=== PATIENT | female | born 1965 | race Two or more races ===

== ENCOUNTER 2016-09-08 13:20 | Emergency (ER) | payer OTHER ==
[2016-09-08 13:28] VITALS: BP 143/96; PULSE 79; TEMP 98.2; BMI 30.1
--- NOTE | 2016-09-08 14:09 | PDOC ---
History of Present Illness - General Chief Complaint: Ear Problem Stated Complaint: RT EAR PAIN Time Seen by Provider: 09/08/16 13:43 History Source: Patient Exam Limitations: No Limitations - History of Present Illness Initial Comments: 09/08/16 14:09 Chief Complaint: "My ear hurts and my throat is sore" Pt. is a 51 y/o female who presents to the ED complaining of R ear pain and sore throat for three days. Pt. states that her ear began to bother her first and then her throat hurt. Pt. states that the area behind her ear hurts. Her symptoms have gotten worse over the past three days. Took Motrin with some relief. Denies hearing changes, ringing in the ears, dizziness, difficulty swallowing, and drooling. Denies fevers, chills, malaise, N/V/D. Pt. has not seen a dentist in years. Past History - Past Medical History Allergies/Adverse Reactions: Allergies Allergy/AdvReac Type Severity Reaction Status Date / Time No Known Allergies Allergy Verified 09/08/16 13:28 Home Medications: Ambulatory Orders Fluticasone Prop 0.05% Nasal [Flonase -] 1 - 2 spray NS BID #1 spray.pump Ibuprofen 600 mg PO Q4HWA #28 tablet 09/08/16 GI Disorders: Yes (GASTRITIS) - Surgical History Cholecystectomy: Yes - Psycho/Social/Smoking Cessation Hx Anxiety: No Suicidal Ideation: No Smoking History: Never smoked Number of Cigarettes Smoked Daily: 1 Information on smoking cessation initiated: No Hx Alcohol Use: No Review of Systems - Review of Systems Able to Perform ROS?: Yes Is the patient limited Japanese proficient: No Constitutional: No: Chills, Fever, Weakness HEENTM: Yes: Ear Pain, Throat Pain. No: Blurred Vision, Recent change in vision , Ear Discharge, Nose Pain, Nose Congestion, Tinnitus, Hearing Loss, Dental Problems, Difficulty Swallowing Respiratory: No: Cough, Shortness of Breath Neurological: No: Headache, Dizziness *Physical Exam - Vital Signs Last Vital Signs Temp Pulse Resp BP Pulse Ox 98.2 F 79 18 143/96 99 09/08/16 13:25 09/08/16 13:25 09/08/16 13:25 09/08/16 13:25 09/08/16 13:25 - Physical Exam Comments: 09/08/16 14:38 MOUTH/DENTAL: Molars missing of both upper and lower teeth. Enamal erosion on top teeth. No obvious abscess, or inflammation. General Appearance: Yes: Nourished, Appropriately Dressed. No: Apparent Distress HEENT: positive: EOMI, SHAMAR, Normal Voice, Symmetrical, Tonsillar Erythema, TM Dull, Other (L TM with sclerosis). negative: Muffled/Hoarse voice, Tonsillar Exudate, Nasal Congestion, Rhinorrhea, Sinus Tenderness, TM Erythema, Excessive drooling Neck: positive: Trachea midline, Supple, Lymphadenopathy (R). negative: Tender , Rigid Respiratory/Chest: positive: Lungs Clear, Respiratory Distress, Accessory Muscle Use. negative: Normal Breath Sounds Integumentary: positive: Normal Color, Dry, Warm Medical Decision Making - Medical Decision Making 09/08/16 14:39 Pt. is a 51 y/o female who presents to the ED with a chief complaint of sore throat and ear pain for 3 days. L ear with sclerosis of the TM, but no obvious infection. Middle ear serous effusion present behind the R TM. Will test the pt. for strep at this time. Will also give toradol for pain. Re-evaluate 09/08/16 15:43 Strep testing is negative at this time. Most likely a viral syndrome. Will prescribe fluticasone nasal spray to help with ear symptoms. Also recommend that pt. visit a dentist to have a cleaning and evaluation. Will discharge home at this time with education for symptomatic management. Pt. understands all discharge instructions and all questions were answered at this time. *DC/Admit/Observation/Transfer Diagnosis at time of Disposition: Ear pain, right Pharyngitis Qualifiers: Pharyngitis/tonsillitis etiology: unspecified etiology Qualified Code(s): J02.9 - Acute pharyngitis, unspecified - Discharge Dispostion Admit: No - Prescriptions Prescriptions: Fluticasone Prop 0.05% Nasal [Flonase -] 1 - 2 spray NS BID #1 spray.pump Ibuprofen 600 mg PO Q4HWA #28 tablet - Referrals Referrals: STAFF,NOT ON [Primary Care Provider] - - Patient Instructions Printed Discharge Instructions: DI for Pharyngitis/Tonsillopharyngitis -- Adult Additional Instructions: Tiene dolor de odo y dolor de garganta debido a un virus. Ortega prueba de estreptococo fue negativa hoy. Se le recet un spray nasal para ayudar con el dolor de odo. Use el spray dos veces al da hasta que se sienta mejor. [place] Motrin boyd prescrito hasta que se sienta mejor. Usted puede usar sun'aq con gargarismos de yudi para ayudar con ortega dolor. deborah Solis caliente o paletas tambin pueden ayudar con monique sntomas. Vuelva a la [place] si no puede tragar, desarrollar fiebre o escalofros, o si tiene algn cambio en monique sntomas. Print Language: FRENCH
[2016-09-08] MEDS ORDERED: KETOROLAC TROMETHAMINE 60 MG/2 ML VIAL IM ONE (14:23)
== END 2016-09-08 15:58 | disposition home or self-care (01) ==
LOC: JERFT 13:20
PROC: 3E0233Z Introduction of Anti-inflammatory into Muscle, Percutaneous Approach (ICD-10-PCS; principal; 2016-09-08)
DX: H92.01 Otalgia, right ear (principal); J02.9 Acute pharyngitis, unspecified
CPT/HCPCS: 87070; 87430; 99281-25

== ENCOUNTER 2016-10-17 16:17 | Emergency (ER) | payer OTHER ==
[2016-10-17 16:27] VITALS: BP 134/92; PULSE 88; TEMP 98.1; BMI 29.4
--- NOTE | 2016-10-17 17:58 | PDOC ---
History of Present Illness - General Chief Complaint: Sore Throat Stated Complaint: PAIN Past History - Past Medical History Allergies/Adverse Reactions: Allergies Allergy/AdvReac Type Severity Reaction Status Date / Time No Known Allergies Allergy Verified 10/17/16 16:24 Home Medications: Ambulatory Orders Fluticasone Prop 0.05% Nasal [Flonase -] 1 - 2 spray NS BID #1 spray.pump Ibuprofen 600 mg PO Q4HWA #28 tablet 09/08/16 GI Disorders: Yes (GASTRITIS) Hypercholesterolemia: Yes - Surgical History Cholecystectomy: Yes - Psycho/Social/Smoking Cessation Hx Anxiety: No Suicidal Ideation: No Smoking History: Never smoked Have you smoked in the past 12 months: No Number of Cigarettes Smoked Daily: 1 Information on smoking cessation initiated: No Hx Alcohol Use: No Drug/Substance Use Hx: No Substance Use Type: None *Physical Exam - Vital Signs Last Vital Signs Temp Pulse Resp BP Pulse Ox 98.1 F 88 18 134/92 100 10/17/16 16:25 10/17/16 16:25 10/17/16 16:25 10/17/16 16:25 10/17/16 16:25
--- NOTE | 2016-10-17 18:00 | PDOC ---
History of Present Illness - General History Source: Patient Exam Limitations: No Limitations <EricReema - Last Filed: 10/17/16 18:19> - General History Source: Patient Exam Limitations: No Limitations - History of Present Illness Initial Comments: 10/17/16 18:44 The patient is a 51 year old female, with a significant past medical history of Gastritis, Hypercholesterolemia, who presents to the emergency department with throat pain, headache and ear pressure for the past 3 days.. Patient describes wrap around headache with associated mild rhinorrhea and throat pain. The patient was previously seen in the ED for the same complaints for which she was given nasacort and motrin with minimal resolvement. Patient returns to the ED with worsening headache. Patient denies fever, chills. Patient denies exercise change. Patient nausea, vomiting, light or sound sensitivity. Allergies: NKA Past surgical history: Cholecystectomy Social history: None <Tammie Land - Last Filed: 10/17/16 18:46> - General Chief Complaint: Sore Throat Stated Complaint: PAIN Time Seen by Provider: 10/17/16 17:58 Past History - Past Medical History GI Disorders: Yes (GASTRITIS) Hypercholesterolemia: Yes - Surgical History Cholecystectomy: Yes - Psycho/Social/Smoking Cessation Hx Anxiety: No Suicidal Ideation: No Smoking History: Never smoked Have you smoked in the past 12 months: No Number of Cigarettes Smoked Daily: 1 Information on smoking cessation initiated: No Hx Alcohol Use: No Drug/Substance Use Hx: No Substance Use Type: None <Reema Reyes - Last Filed: 10/17/16 18:19> <Tammie Land - Last Filed: 10/17/16 18:46> - Past Medical History Allergies/Adverse Reactions: Allergies Allergy/AdvReac Type Severity Reaction Status Date / Time No Known Allergies Allergy Verified 10/17/16 16:24 Home Medications: Ambulatory Orders Fluticasone Prop 0.05% Nasal [Flonase -] 1 - 2 spray NS BID #1 spray.pump Ibuprofen 600 mg PO Q4HWA #28 tablet 09/08/16 Review of Systems - Review of Systems Able to Perform ROS?: Yes Comments:: 10/17/16 18:44 CONSTITUTIONAL: Absent: fever, no chills, no fatigue EYES: Absent: visual changes ENT: + ear pain. +throat pain. +headache. CARDIOVASCULAR: Absent: chest pain, no palpitations RESPIRATORY: Absent: cough, no SOB SKIN: Absent: rash NEURO: Absent: headache <Tammie Land - Last Filed: 10/17/16 18:46> *Physical Exam - Vital Signs Last Vital Signs Temp Pulse Resp BP Pulse Ox 98.1 F 88 18 134/92 100 10/17/16 16:25 10/17/16 16:25 10/17/16 16:25 10/17/16 16:25 10/17/16 16:25 <Reema Reyes - Last Filed: 10/17/16 18:19> - Vital Signs Last Vital Signs Temp Pulse Resp BP Pulse Ox 98.1 F 88 18 134/92 100 10/17/16 16:25 10/17/16 16:25 10/17/16 16:25 10/17/16 16:25 10/17/16 16:25 - Physical Exam Comments: 10/17/16 18:44 GENERAL: +Appears uncomfortable.No apparent distress. HEENT: +Head has reproducible tenderness to occiput and scalp insertion sites. Sternocleidomastoid insertion and tenderness that reproduces headache with pressure point. +Neck is supple. +Clear rhinitis. Normocephalic, atraumatic. PERRL, EOM intact. PULMONARY: Clear to auscultation bilaterally. EXTREMITIES: Normal ROM in all four extremities. No gross deformities. SKIN: Warm, dry. No rash NEUROLOGICAL: No focal neurological deficits. <Tammie Land - Last Filed: 10/17/16 18:46> Medical Decision Making - Medical Decision Making 10/17/16 18:44 Patient given cyclobenzaprine and toradol 60 mg IM Reema Reyes CURATOR OF COLLECTIONS: The scribe's documentation has been prepared under my direction and personally reviewed by me in its entirety. I confirm that the note above accurately reflects all work, treatment, procedures, and medical decision making performed by me. <Nay Landhel - Last Filed: 10/17/16 18:46> *DC/Admit/Observation/Transfer - Discharge Dispostion Admit: No <Reema Reyes - Last Filed: 10/17/16 18:19> - Attestations Scribe Attestion: 10/17/16 18:44 Documentation prepared by Tammie aLnd, acting as medical records administrator for Reema Reyes NP <Tammie Land - Last Filed: 10/17/16 18:46> Diagnosis at time of Disposition: Cervical strain, acute Qualifiers: Encounter type: initial encounter Qualified Code(s): S16.1XXA - Strain of muscle, fascia and tendon at neck level, initial encounter - Discharge Dispostion Disposition: HOME Condition at time of disposition: Stable - Patient Instructions Printed Discharge Instructions: DI for Cervical Muscle Strain Additional Instructions: Rest, no heavy lifting or exercise until pain is resolved Hot soaks to neck and low back as often as possible/hot showers or Jacuzzis No massage or therapy until spasm is gone Continue ibuprofen 2-200 mg tablets every 6 hours for the next 3 days then as needed for pain and swelling Cyclobenzaprine 1-10mg for spasm- will make dizzy and sleepy If not significant improvement within 24 hours with medication and rest regime, followup with private physician for change in medications and /or therapy. Descansar, no levantar objetos pesados ??o hacer ejercicio hasta que el dolor se resuelva Empapados en caliente al ya y espalda baja osullivan frecuentemente boyd sea posible / duchas calientes o jacuzzis Sin masaje ni terapia hasta que el espasmo desaparezca Contine con ibuprofen 2-200 mg comprimidos cada 6 horas sunita los siguientes 3 coker, segn sea necesario para el dolor y la inflamacin Cyclobenzaprine 1-10mg para el espasmo - bob mareado y sooliento Si no mejora significativa dentro de 24 horas con la medicacin y el rgimen de descanso, seguimiento con el mdico privado para el cambio en medicamentos y / o terapia.
[2016-10-17] MEDS ORDERED: KETOROLAC TROMETHAMINE 60 MG/2 ML VIAL IM ONE (18:17)
[2016-10-17] MEDS ORDERED: KETOROLAC TROMETHAMINE 60 MG/2 ML VIAL ONE (18:17)
[2016-10-17] MEDS ORDERED: CYCLOBENZAPRINE HCL 10 MG TABLET (FP) ONE (18:26)
== END 2016-10-17 18:47 | disposition home or self-care (01) ==
LOC: JERFT 16:17
PROC: 3E0233Z Introduction of Anti-inflammatory into Muscle, Percutaneous Approach (ICD-10-PCS; principal; 2016-10-17)
DX: S16.1XXA Strain of muscle, fascia and tendon at neck level, initial encounter (principal); X58.XXXA Exposure to other specified factors, initial encounter; Y93.89 Activity, other specified; Y92.89 Other specified places as the place of occurrence of the external cause
CPT/HCPCS: 96372; 99281-25

== ENCOUNTER 2016-11-14 10:49 | Emergency (ER) | payer OTHER ==
[2016-11-14 11:06] VITALS: BMI 29.4
--- NOTE | 2016-11-14 12:14 | EKG ---
Test Reason : Blood Pressure : / mmHG Vent. Rate : 088 BPM Atrial Rate : 088 BPM P-R Int : 156 ms QRS Dur : 074 ms QT Int : 364 ms P-R-T Axes : 037 001 026 degrees QTc Int : 440 ms NORMAL SINUS RHYTHM NORMAL ECG WHEN COMPARED WITH ECG OF 02-SEP-2013 13:10, NO SIGNIFICANT CHANGE WAS FOUND Confirmed by BONNIE QUILES MD ([id number]) on 11/14/2016 12:13:52 PM Referred By: Confirmed By:BONNIE QUILES MD
[2016-11-14 12:17] LABS: BASOPHIL 0.8 % (0-2.0); EOSINOPHIL 2.2 % (0-4.5); MCH 31.1 pg (25.7-33.7); MEAN CELL VOLUME 91.5 fl (80-96); MEAN PLT VOLUME 8.4 fl (7.5-11.1); NEUTROPHILS 61.3 % (42.8-82.8); PLATELET COUNT 254 K/MM3 (134-434); RDW 12.7 % (11.6-15.6); WHITE BLOOD COUNT 9.1 K/mm3 (4.0-10.0)
[2016-11-14 12:40] LABS: URINE APPEARANCE CLEAR; URINE BILIRUBIN NEGATIVE (NEGATIVE); URINE BLOOD 1+ (NEGATIVE); URINE COLOR LTYELLOW; URINE GLUCOSE (UA) NEGATIVE (NEGATIVE); URINE KETONE NEGATIVE (NEGATIVE); URINE LEUK ESTERASE NEGATIVE (NEGATIVE); URINE NITRITE NEGATIVE (NEGATIVE); URINE PROTEIN NEGATIVE (NEGATIVE); URINE UROBILINOGEN NEGATIVE mg/dL (0.2-1.0)
[2016-11-14] MEDS ORDERED: ALBUTEROL SO4 2.5/IPRATROPIUM 0.5 INH SOL 3 ML VIAL.NEB. NEB ONE ×2 (12:41→12:46)
[2016-11-14 12:42] LABS: ALBUMIN 3.8 g/dl (3.4-5.0); ANION GAP 5 (8-16); BILIRUBIN,TOTAL 0.5 mg/dL (0.2-1.0); CALCIUM 9.4 mg/dL (8.5-10.1); CO2 29 mmol/L (21-32); CREATININE 0.8 mg/dL (0.55-1.02); GLUCOSE,RANDOM 113 mg/dL (74-106); SGOT/AST 18 U/L (15-37); SGPT/ALT 31 U/L (12-78); TOT PROT 7.7 g/dl (6.4-8.2)
--- NOTE | 2016-11-14 12:43 | PDOC ---
History of Present Illness <ShanekaAubrey - Last Filed: 11/14/16 13:34> - General History Source: Patient Exam Limitations: No Limitations <Emery,Tammie - Last Filed: 11/14/16 15:08> - General Chief Complaint: Chest Pain Stated Complaint: CHEST PAIN Time Seen by Provider: 11/14/16 11:30 - History of Present Illness Initial Comments: 11/14/16 13:32 The patient is a 51 year old female, with a significant past medical history of Gastritis, HLD, Asthma, who presents to the emergency department with cold-like symptoms and pleuritic chest pain for the past 4 days. The patient reports subjective fever, throat pain and SOB secondary to productive cough (yellow) that has progressively worsened. The patient took Motrin and albuterol pump however reports minimal relief. Patient also states her sister is sick with the same symptoms. Patient reports recent travel from 2 months ago but was fine until 4 days ago. She denies headache or dizziness. She denies, diaphoresis, exertional sob/cp, abdominal pain, nausea, vomit, diarrhea or constipation. She denies dysuria, frequency, urgency or hematuria. Allergies: NKA Past surgical history: Cholecystectomy, Hysterectomy Social history: Never smoked (EmeryTammie) Past History - Past Medical History GI Disorders: Yes (GASTRITIS) Hypercholesterolemia: Yes - Surgical History Cholecystectomy: Yes - Immunization History Immunization Up to Date: Yes - Psycho/Social/Smoking Cessation Hx Anxiety: No Suicidal Ideation: No Smoking History: Never smoked Have you smoked in the past 12 months: No Number of Cigarettes Smoked Daily: 2 Information on smoking cessation initiated: No Hx Alcohol Use: No Drug/Substance Use Hx: No Substance Use Type: None <Aubrey Munroe - Last Filed: 11/14/16 13:34> <Tammie Land - Last Filed: 11/14/16 15:08> - Past Medical History Allergies/Adverse Reactions: Allergies Allergy/AdvReac Type Severity Reaction Status Date / Time No Known Allergies Allergy Verified 11/14/16 11:02 Home Medications: Ambulatory Orders Ibuprofen 600 mg PO Q4HWA #28 tablet 09/08/16 Albuterol Sulfate Inhaler - [Ventolin HFA Inhaler -] 1 - 2 inh PO Q4H PRN #1 inhaler 11/14/16 Albuterol Sulfate Inhaler - [Ventolin Hfa Inhaler -] 1 - 2 inh PO Q4H 11/14/16 Benzonatate [Tessalon Pearls -] 100 mg PO TID PRN #21 capsule 11/14/16 Review of Systems <ShanekaAubrey - Last Filed: 11/14/16 13:34> - Review of Systems Able to Perform ROS?: Yes <Tammie Land - Last Filed: 11/14/16 15:08> - Review of Systems Comments:: 11/14/16 13:32 CONSTITUTIONAL: +subjective fever No reported: Chills, Diaphoresis, Generalized Weakness, Malaise, Loss of Appetite HEENT: +throat pain. No reported: Rhinorrhea, Nasal Congestion, Throat Pain, Throat Swelling, Difficulty Swallowing, Mouth Swelling, Ear Pain, Eye Pain, Visual Changes CARDIOVASCULAR: +chest pain No reported: Syncope, Palpitations, Irregular Heart Rate, Lightheadedness, Peripheral Edema RESPIRATORY: + SOB, cough No reported: SOB with Exertion, Orthopnea, Wheezing, Stridor, Hemoptysis GASTROINTESTINAL: No reported: Abdominal pain, Abdominal Distension, Nausea, Vomiting, Diarrhea, Constipation, Melena, Hematochezia GENITOURINARY: No reported: Dysuria, Frequency, Urgency, Hesitancy, Flank Pain, Genital Pain MUSCULOSKELETAL: No reported: Myalgia, Arthralgia, Joint Swelling, Back pain, Neck Pain SKIN: No reported: Rash, Itching, Pallor HEMATOLOGIC/IMMUNOLOGIC: No reported: Easy Bleeding, Easy Bruising, Lymphadenopathy, Frequent infections ENDOCRINE: No reported: Unexplained Weight Gain, Unexplained Weight Loss, Heat Intolerance , Cold Intolerance NEUROLOGIC: No reported: Headache, Focal Weakness, Paresthesias, Vertigo, Lightheadedness, Unsteady Gait, Seizure, Mental Status Changes, Incontinence PSYCHIATRIC: No reported: Anxiety, Depression (Tammie Land) *Physical Exam <Aubrey Munroe - Last Filed: 11/14/16 13:34> <Tammie Land - Last Filed: 11/14/16 15:08> - Vital Signs Last Vital Signs Temp Pulse Resp BP Pulse Ox 98.7 F 70 18 142/70 97 11/14/16 14:18 11/14/16 14:18 11/14/16 14:18 11/14/16 14:18 11/14/16 14:18 - Physical Exam Comments: 11/14/16 13:32 GENERAL: The patient is awake, alert, and fully oriented, Nontoxic - in no acute distress. HEAD: Normocephalic, atraumatic. EYES: extraocular movements intact, sclera anicteric, conjunctiva clear. ENT: +Posterior pharyngeal erythema. Normal voice, Moist mucous membranes. NECK: Normal range of motion, No JVD LUNGS: Breath sounds equal, clear to auscultation bilaterally. No wheezes, no rhonchi, no rales. HEART: Regular rate and rhythm, normal S1 and S2 without murmur, rub or gallop. ABDOMEN: Soft, nontender, normoactive bowel sounds. No guarding, no rebound. No masses. No CVA tenderness EXTREMITIES: Normal range of motion, no edema. No clubbing or cyanosis. No cords , erythema, or calf tenderness.No edema NEUROLOGICAL: No facial asymmetry, Normal speech, normal gait. PSYCH: Normal mood, normal affect. SKIN: Warm, Dry, normal turgor. (Tammie Land) Heart Score/ECG Review <Aubrey Munroe - Last Filed: 11/14/16 13:34> <Tammie Land - Last Filed: 11/14/16 15:08> - ECG Impressions Comment:: 11/14/16 13:08 Twelve-lead EKG was performed and reviewed by me. There is normal sinus rhythm with a normal rate. Rate of 85 The axis is normal. The intervals are normal. There is normal R wave progression There are no ST or T wave abnormalities. Impression: Normal twelve-lead EKG (Aubrey Munroe) ED Treatment Course - LABORATORY CBC & Chemistry Diagram: 11/14/16 12:12 11/14/16 12:12 <Aubrey Munroe - Last Filed: 11/14/16 13:34> - LABORATORY CBC & Chemistry Diagram: 11/14/16 12:12 11/14/16 12:12 <Tammie Land - Last Filed: 11/14/16 15:08> - ADDITIONAL ORDERS Additional order review: Laboratory Results 11/14/16 11/14/16 12:23 12:12 Sodium 138 Potassium 4.2 Chloride 104 Carbon Dioxide 29 Anion Gap 5 L BUN 7 D Creatinine 0.8 Creat Clearance w eGFR > 60 Random Glucose 113 H Calcium 9.4 Total Bilirubin 0.5 AST 18 D ALT 31 D Alkaline Phosphatase 94 Creatine Kinase 113 Troponin I < 0.02 Total Protein 7.7 Albumin 3.8 Lipase 111 Urine Color Ltyellow Urine Appearance Clear Urine pH 6.0 Urine Protein Negative Urine Glucose (UA) Negative Urine Ketones Negative Urine Blood 1+ H Urine Nitrite Negative Urine Bilirubin Negative Urine Urobilinogen Negative Ur Leukocyte Esterase Negative Urine RBC 1 Urine WBC 1 Ur Epithelial Cells Few Urine Mucus Rare Urine HCG, Qual Negative 11/14/16 12:12 RBC 4.72 MCV 91.5 MCHC 34.0 RDW 12.7 MPV 8.4 Neutrophils % 61.3 Lymphocytes % 27.9 D Monocytes % 7.8 Eosinophils % 2.2 Basophils % 0.8 - Medications Given in the ED: ED Medications Discontinued Medications Generic Name Dose Route Start Last Admin Trade Name Freq PRN Reason Stop Dose Admin Albuterol/Ipratropium 1 amp 11/14/16 12:41 11/14/16 12:49 Duoneb - NEB 11/14/16 12:42 1 amp ONCE ONE Administration Medical Decision Making <Aubrey Munroe - Last Filed: 11/14/16 13:34> <Tammie Land - Last Filed: 11/14/16 15:08> - Medical Decision Making 11/14/16 12:42 51y F hx of asthma,presenting with 4 days of cough associated with congestion, sore throat, mild chest pain when she breaths,subjective fevers, sister with similar symptoms. on exam pt apepars well in no distress will obtain ekg, cxr to r/o pna will give duoneb likely bronchitis, will r/ pna A portion of this note was documented by scribe services under my direction. I have reviewed the details of the note, within reason, and agree with the documentation with the following case summary and management plan written by me 11/14/16 13:08 Patient's lab work was reviewed it is unremarkable Chest x-ray negative for acute pathology Will discharge patient with supportive management at home We'll give the patient antitussives. follow-up with PMD Return precautions were discussed I discussed the physical exam findings, ancillary test results and final diagnoses with the patient. I answered all of the patient's questions. The patient was satisfied with the care received and felt comfortable with the discharge plan and treatment plan. The patient will call their primary care physician within 24 hours to arrange follow-up and will return to the Emergency Department with any new, persistent or worsening symptoms. (Aubrey Munroe) *DC/Admit/Observation/Transfer - Discharge Dispostion Admit: No <Aubrey Munroe - Last Filed: 11/14/16 13:34> <Tammie Land - Last Filed: 11/14/16 15:08> Diagnosis at time of Disposition: Cough Upper respiratory infection Qualifiers: URI type: unspecified viral URI Qualified Code(s): J06.9 - Acute upper respiratory infection, unspecified - Discharge Dispostion Disposition: HOME Condition at time of disposition: Improved - Prescriptions Prescriptions: Benzonatate [Tessalon Pearls -] 100 mg PO TID PRN #21 capsule PRN Reason: Cough Albuterol Sulfate Inhaler - [Ventolin HFA Inhaler -] 1 - 2 inh PO Q4H PRN #1 inhaler PRN Reason: Shortness Of Breath - Referrals Referrals: [facility] [Provider Group] - Patient Instructions Printed Discharge Instructions: DI for Viral Upper Respiratory Infection -- Adult Additional Instructions: Vuelva al departamento de emergencia inmediatamente con CUALQUIER nuevo, persistente o empeorando sntomas. [place] los medicamentos necesarios para la tos. [place] ibuprofeno o Tylenol para cualquier dolor o malestar Debe llamar y hacer el seguimiento con ortega mdico en 4-5 coker para andrey evaluaci n ms detallada de monique sntomas. Los resultados fueron discutidos con usted. Por favor, asegrese de que ortega mdico revise los resultados de ortega evaluacin de emergencia. Return to the emergency department immediately with ANY new, persistent or worsening symptoms. Take the medications as needed for cough. Take ibuprofen or Tylenol for any pain or discomfort You MUST call and follow up with your doctor in 4-5 days for further evaluation of your symptoms. Results were discussed with you. Please make sure your doctor reviews the results of your emergency evaluation. Print Language: PERSIAN - Attestations Scribe Attestion: 11/14/16 13:32 Documentation prepared by Tammie Land, acting as medical aide for Aubrey Munroe MD (Emery,Tammie)
[2016-11-14 12:45] LABS: ALK PHOS 94 U/L (45-117); CPK 113 IU/L (26-192); TROPONIN I < 0.02 ng/ml (0.00-0.05)
[2016-11-14 12:50] LABS: URINE MUCUS RARE; URINE RBC 1 /hpf (0-3); URINE WBC 1 /hpf (3-5)
[2016-11-14 14:20] VITALS: BP 142/70; PULSE 70; TEMP 98.7
== END 2016-11-14 14:20 | disposition home or self-care (01) ==
LOC: JER 10:49
PROC: 3E0F7GC Introduction of Other Therapeutic Substance into Respiratory Tract, Via Natural or Artificial Opening (ICD-10-PCS; principal; 2016-11-14)
DX: J06.9 Acute upper respiratory infection, unspecified (principal)
CPT/HCPCS: 36415; 71010-TC; 80053; 81003; 81015; 83690; 84484; 84703; 85025; 93005; 93010; 94640; 99285-25

== ENCOUNTER 2017-08-11 10:14 | Emergency (ER) | payer OTHER ==
[2017-08-11 10:20] VITALS: BMI 31.5
--- NOTE | 2017-08-11 11:04 | PDOC ---
*Physical Exam - Vital Signs Last Vital Signs Temp Pulse Resp BP Pulse Ox 98.0 F 87 18 148/88 100 08/11/17 10:17 08/11/17 10:17 08/11/17 10:17 08/11/17 10:17 08/11/17 10:17 Medical Decision Making - Medical Decision Making 08/11/17 11:04 Pt seen by the Advanced Practice Provider under my direct supervision Ancillary studies reviewed I agree with plan as outlined by the Advanced Practice Provider AMRIBEL Pham *DC/Admit/Observation/Transfer Diagnosis at time of Disposition: Benign cyst of left breast - Discharge Dispostion Disposition: HOME Condition at time of disposition: Stable - Prescriptions Prescriptions: Ibuprofen 800 mg PO TID #30 tablet - Referrals Referrals: Sylvie Capone MD [Staff Physician] - - Patient Instructions Printed Discharge Instructions: DI for Breast Cyst Additional Instructions: You have a benign cyst as seen by your ultrasound. Please take Motrin 800mg every 8 hours as needed for your pain. Please follow up with [facility]. A referral has been provided for you Return to the ED if you have worsening pain, or have any new or worsening symptoms. Usted tiene un quiste shanna boyd se ve en ortega ultrasonido. Por favor, tome Motrin 800 mg cada 8 horas, segn sea necesario para ortega dolor. Por favor haz un seguimiento con OB / [employer]. Kia referencia bah sido provista para usted Regrese al servicio de urgencias si tiene un empeoramiento del dolor o tiene s ntomas nuevos o que empeoran. Print Language: MAORI - Post Discharge Activity
--- NOTE | 2017-08-11 11:06 | PDOC ---
History of Present Illness - General Chief Complaint: Pain Stated Complaint: BREAST PAIN Time Seen by Provider: 08/11/17 10:37 History Source: Patient - History of Present Illness Initial Comments: 08/11/17 12:34 Patient is a 52-year-old female with no past medical history who presents emergency department today complaining of left breast pain. She states that her pain started 3 days ago. She states that she feels a lump and she is concerned. Denies fevers, chills, shortness of breath, difficulty breathing, chest pain nausea, vomiting and diarrhea. Past History - Travel Traveled outside of the country in the last 30 days: No Close contact w/someone who was outside of country & ill: No - Past Medical History Allergies/Adverse Reactions: Allergies Allergy/AdvReac Type Severity Reaction Status Date / Time No Known Allergies Allergy Verified 11/14/16 11:02 Home Medications: Ambulatory Orders Ibuprofen 800 mg PO TID #30 tablet 08/11/17 COPD: No GI Disorders: Yes (GASTRITIS) Hypercholesterolemia: Yes - Surgical History Cholecystectomy: Yes - Immunization History Immunization Up to Date: Yes - Suicide/Smoking/Psychosocial Hx Smoking History: Never smoked Have you smoked in the past 12 months: No Number of Cigarettes Smoked Daily: 2 Information on smoking cessation initiated: No Hx Alcohol Use: No Drug/Substance Use Hx: No Substance Use Type: None Review of Systems - Review of Systems Able to Perform ROS?: Yes Comments:: 08/11/17 11:53 CONSTITUTIONAL: Absent: fever, chills, diaphoresis, generalized weakness, malaise, loss of appetite HEENT: Absent: rhinorrhea, nasal congestion, throat pain, throat swelling, difficulty swallowing, mouth swelling, ear pain, eye pain, visual Changes CARDIOVASCULAR: Absent: chest pain, loss of consciousness, palpitations, irregular heart rate, peripheral edema BREAST: Present: L breast tenderness. Absent: discharge from nipple RESPIRATORY: Absent: cough, shortness of breath, dyspnea with exertion, orthopnea, wheezing, stridor, hemoptysis GASTROINTESTINAL: Absent: abdominal pain, abdominal distension, nausea, vomiting, diarrhea, constipation, melena, hematochezia GENITOURINARY: Absent: dysuria, frequency, urgency, hesitancy, hematuria, flank pain, genital pain MUSCULOSKELETAL: Absent: myalgia, arthralgia, joint swelling SKIN: Absent: rash, itching, pallor HEMATOLOGIC/IMMUNOLOGIC: Absent: easy bleeding, easy bruising, lymphadenopathy, frequent infections ENDOCRINE: Absent: unexplained weight gain, unexplained weight loss, heat intolerance, cold intolerance NEUROLOGIC: Absent: headache, focal weakness or paresthesias, dizziness, unsteady gait, seizure, mental status changes, bladder or bowel incontinence PSYCHIATRIC: Absent: anxiety, depression, suicidal or homicidal ideation, hallucinations. Is the patient limited Kiswahili proficient: No *Physical Exam - Vital Signs Last Vital Signs Temp Pulse Resp BP Pulse Ox 98.0 F 87 18 148/88 100 08/11/17 10:17 08/11/17 10:17 08/11/17 10:17 08/11/17 10:17 08/11/17 10:17 - Physical Exam Comments: 08/11/17 11:54 GENERAL: Well developed, well nourished. Awake and alert. No acute distress. HEENT: Normocephalic, atraumatic. PERRLA, EOMI. No conjunctival pallor. Sclera are non- icteric. Moist mucous membranes. Oropharynx is clear. NECK: Supple. Full ROM. No JVD. Carotid pulses 2+ and symmetric, without bruits. No thyromegaly. No lymphadenopathy. BREAST: L breast with old surgical scars. Small round mobile nodule felt at the 10o' clock position closest to the nipple CARDIOVASCULAR: Regular rate and rhythm. No murmurs, rubs, or gallops. Distal pulses are 2+ and symmetric. PULMONARY: No evidence of respiratory distress. Lungs clear to auscultation bilaterally. No wheezing, rales or rhonchi. ABDOMINAL: Soft. Non-tender. Non-distended. No rebound or guarding. No organomegaly. Normoactive bowel sounds. MUSCULOSKELETAL Normal range of motion at all joints. No bony deformities or tenderness. No CVA tenderness. EXTREMITIES: No cyanosis. No clubbing. No edema. No calf tenderness. SKIN: Warm and dry. Normal capillary refill. No rashes. No jaundice. NEUROLOGICAL: Alert, awake, appropriate. Cranial nerves 2-12 intact. No deficits to light touch and temperature in face, upper extremities and lower extremities. No motor deficits in the in face, upper extremities and lower extremities. Normoreflexic in the upper and lower extremities. Normal speech. Toes are down- going bilaterally. Gait is normal without ataxia. PSYCHIATRIC: Cooperative. Good eye contact. Appropriate mood and affect. Medical Decision Making - Medical Decision Making 08/11/17 12:24 Patient is a 52-year-old female with no past medical history due to lack of seeing a doctor, who presents emergency department today complaining of left breast pain. On exam there is a round nodule at the 10 o'clock position near the nipple. Most likely cyst versus fibroma. We will obtain an ultrasound at this time to rule out abscess however less likely. No fevers in the ED. Vital signs are stable. Reevaluate 08/11/17 13:36 Ultrasound shows a complex benign cyst at the 10 o'clock position. No further treatment is needed at this time. We'll prescribe patient Motrin. We'll give follow-up for [facility]. Return precautions given. Patient understand all discharge instructions and all questions were answered. *DC/Admit/Observation/Transfer Diagnosis at time of Disposition: Benign cyst of left breast - Discharge Dispostion Disposition: HOME Condition at time of disposition: Stable Admit: No - Prescriptions Prescriptions: Ibuprofen 800 mg PO TID #30 tablet - Referrals Referrals: Sylvie Capone MD [Staff Physician] - - Patient Instructions Printed Discharge Instructions: DI for Breast Cyst Additional Instructions: You have a benign cyst as seen by your ultrasound. Please take Motrin 800mg every 8 hours as needed for your pain. Please follow up with [facility]. A referral has been provided for you Return to the ED if you have worsening pain, or have any new or worsening symptoms. Usted tiene un quiste shanna boyd se ve en ortega ultrasonido. Por favor, tome Motrin 800 mg cada 8 horas, segn sea necesario para ortega dolor. Por favor haz un seguimiento con OB / BUTCHER. Kia referencia bah sido provista para usted Regrese al servicio de urgencias si tiene un empeoramiento del dolor o tiene s ntomas nuevos o que empeoran. Print Language: AZERI - Post Discharge Activity
[2017-08-11] MEDS ORDERED: ACETAMINOPHEN 325 MG TABLET (FP) PO ONE (11:08)
[2017-08-11] MEDS ORDERED: ACETAMINOPHEN 325 MG TABLET (FP) ONE (11:12)
[2017-08-11 13:56] VITALS: BP 139/86; PULSE 82; TEMP 97.9
== END 2017-08-11 13:54 | disposition home or self-care (01) ==
LOC: JER 10:14
DX: N60.02 Solitary cyst of left breast (principal); Z72.0 Tobacco use
CPT/HCPCS: 76642-TC-LT; 99283-25

== ENCOUNTER → 2017-08-22 | Day surgery (SDC) | payer OTHER ==
--- NOTE | 2017-08-23 17:03 | PATH ---
Cytology Non-Gynecological Report Patient Name: APOLLO LITTLEJOHN [facility]. Rec. #: [id number] /Age/Gender: 1965 (Age: 52) / F Account: [id number] Location: RADIOLOGY Taken: 08/22/2017 Received: 08/22/2017 Reported: 08/23/2017 Physicians: Abelardo Hurtado M.D. Specimen(s) Received RIGHT THYROID FNA Clinical History Right thyroid nodule, 2.03 x 1.12 x 1.81 cm Final Diagnosis THYROID, RIGHT, FINE NEEDLE ASPIRATION: SATISFACTORY FOR EVALUATION. BETHESDA III: ATYPIA OF UNDETERMINED SIGNIFICANCE. ATYPICAL FOLLICULAR CELLS WITH MILD NUCLEAR ENLARGEMENT, CLEARING, NUCLEAR GROOVES, AND FOCAL CROWDING DISPERSED FRAGMENTS, AGGREGATES AND MICROFOLLICLES ASSOCIATED WITH THICK COLLOID AND RARE LYMPHOCYTES. Comment: The presence of lymphocytes raise the possibility of Chronic lymphocytic thyroiditis. Suggest clinical/radiologic and serologic correlation with repeat sampling including material for molecular studies (Thyroseq), as clinically warranted. Electronically Signed Yolanda Cyr M.D. Gross Description Received are eight direct smears, four of which are air-dried and Diff-Quik stained, and four of which are alcohol fixed and Pap stained. Also received is 20 ml of bloody formalin from which one cellblock is prepared.
== END | disposition home or self-care (01) ==
LOC: JRADIR 09:28
PROVIDERS: ATTEND Internal Medicine Endocrinology, Diabetes & Metabolism
PROC: 0G9H3ZX Drainage of Right Thyroid Gland Lobe, Percutaneous Approach, Diagnostic (ICD-10-PCS; principal; 2017-08-22)
DX: E04.1 Nontoxic single thyroid nodule (principal)
CPT/HCPCS: 76942; 88173; 88305-TC

== ENCOUNTER 2017-10-29 15:01 | Emergency (ER) | payer OTHER ==
[2017-10-29 15:19] VITALS: BMI 31.5
--- NOTE | 2017-10-29 15:57 | PDOC ---
History of Present Illness - General Chief Complaint: Blood Pressure Problem Stated Complaint: ELEVATED BP - History of Present Illness Initial Comments: 52 year old female, with a significant past medical history of Gastritis, Hypercholesterolemia, HTN, and ?hyperthyroidism? presenting with one episode of lightheadedness while walking the hallway 4 hours prior to presentation. States that she was walking down the hallway and suddenly felt very weak as if she was going to fall. She put her hands on the wall and slowly walked to her bed. She has never had this feeling prior to this. She did feel slightly nauseous at the time. She did not syncopize, fall, vomit, or suffer any trauma. Of note, she has been under a lot of stress from issues with her mother abroad in the [place] and has been restless that past three days while trying to sleep. Denies any SOB, chest pain, fevers, chills, diarrhea, constipation, headache, visual symptoms, or other issues. 10/29/17 16:12 Past History - Past Medical History Allergies/Adverse Reactions: Allergies Allergy/AdvReac Type Severity Reaction Status Date / Time No Known Allergies Allergy Verified 10/29/17 15:17 Home Medications: Ambulatory Orders Unobtainable 10/29/17 COPD: No GI Disorders: Yes (GASTRITIS) Hypercholesterolemia: Yes - Surgical History Cholecystectomy: Yes - Immunization History Immunization Up to Date: Yes - Suicide/Smoking/Psychosocial Hx Smoking History: Never smoked Have you smoked in the past 12 months: No Number of Cigarettes Smoked Daily: 2 Information on smoking cessation initiated: No Hx Alcohol Use: No Drug/Substance Use Hx: No Substance Use Type: None Review of Systems - Review of Systems Constitutional: No: Chills, Diaphoresis, Fever, Loss of Appetite HEENTM: No: Blurred Vision, Tearing, Recent change in vision Respiratory: No: Cough, Orthopnea, Shortness of Breath, SOB with Exertion Cardiac (ROS): No: Chest Pain, Edema, Irregular Heart Rate ABD/GI: No: Constipated, Diarrhea, Nausea, Vomiting : No: Burning, Dysuria, Discharge *Physical Exam - Vital Signs Last Vital Signs Temp Pulse Resp BP Pulse Ox 98.6 F 84 18 144/84 98 10/29/17 15:15 10/29/17 15:15 10/29/17 15:15 10/29/17 15:15 10/29/17 15:15 - Physical Exam General Appearance: Yes: Appropriately Dressed. No: Nourished, Apparent Distress HEENT: positive: EOMI, SHAMAR, Normal ENT Inspection, Normal Voice Neck: positive: Trachea midline, Normal Thyroid, Supple. negative: Tender, Rigid Respiratory/Chest: positive: Lungs Clear, Normal Breath Sounds. negative: Chest Tender, Respiratory Distress, Accessory Muscle Use Cardiovascular: positive: Regular Rhythm, Regular Rate Gastrointestinal/Abdominal: positive: Normal Bowel Sounds, Flat, Soft. negative : Tender Lymphatic: negative: Adenopathy, Tenderness Musculoskeletal: positive: Normal Inspection. negative: CVA Tenderness Extremity: positive: Normal Capillary Refill, Normal Inspection, Normal Range of Motion. negative: Tender Integumentary: positive: Normal Color, Dry, Warm Neurologic: positive: tax intern II-XII NML intact, Fully Oriented, Alert, Normal Mood/ Affect, Normal Response, Motor Strength 08/19 ED Treatment Course - LABORATORY CBC & Chemistry Diagram: 10/29/17 16:32 10/29/17 16:32 Medical Decision Making - Medical Decision Making 52 year old female with HTn presenting for lightheadedness after three days of poor sleep, poor appetite, and high stress due to family stresses. Overall, the story is most concerning for fatigue related presyncopal sensation. Labs WNL and UA non-infectious. EKG demonstrating no significant changes from previous EKG on 11/14/2016 (NSR, 79 BPM, MS 152, QRS 74, QTc 438 with slightly low/ flattened lead III T waves). Will DC with instructions to rest, eat frequently, and stay hydrated. Will DC with return precautions and follow up instructions. 10/29/17 17:02 *DC/Admit/Observation/Transfer Diagnosis at time of Disposition: Lightheadedness - Discharge Dispostion Disposition: HOME Condition at time of disposition: Improved Decision to Admit order: No - Referrals Referrals: Ceci Han MD [Primary Care Provider] - - Patient Instructions Printed Discharge Instructions: DI for Muscle Weakness Additional Instructions: Debes mantenerte hidratado y comer comidas regulares. Lo ms importante es que necesita dormir 8 horas cada noche! Por favor comienza a cuidarte! Por favor, dominique un seguimiento con ortega mdico de atencin primaria dentro de andrey semana. Regrese al servicio de urgencias si tiene sntomas nuevos o que empeoran. Print Language: UZBEK - Post Discharge Activity
[2017-10-29] MEDS ORDERED: SODIUM CHLORIDE 0.9% 500 ML INFUS.BAG IV ONE (16:10)
[2017-10-29 16:40] LABS: BASO % 1.2 % (0-2.0); EOS % 0.9 % (0-4.5); HEMATOCRIT 45.9 % (32.4-45.2); HEMOGLOBIN 15.4 GM/dL (10.7-15.3); LYMPH % 31.4 % (8-40); MCH 30.9 pg (25.7-33.7); MCHC 33.5 g/dl (32.0-36.0); MEAN PLT VOLUME 8.8 fl (7.5-11.1); MONO % 7.9 % (3.8-10.2); NEUT % 58.6 % (42.8-82.8); PLATELET COUNT 263 K/MM3 (134-434); RBC 4.98 M/mm3 (3.60-5.2); RDW 13.6 % (11.6-15.6); WHITE BLOOD COUNT 8.4 K/mm3 (4.0-10.0)
[2017-10-29 17:00] LABS: ALBUMIN 4.1 g/dl (3.4-5.0); ANION GAP 8 (8-16); BILIRUBIN,TOTAL 0.5 mg/dL (0.2-1.0); BLOOD UREA NITROGEN 11 mg/dL (7-18); CALCIUM 9.5 mg/dL (8.5-10.1); CHLORIDE 106 mmol/L (98-107); CO2 28 mmol/L (21-32); CREATININE 0.9 mg/dL (0.55-1.02); GLUCOSE,RANDOM 79 mg/dL (74-106); MAGNESIUM 2.3 mg/dL (1.8-2.4); POTASSIUM 4.2 mmol/L (3.5-5.1); SGOT/AST 17 U/L (15-37); SGPT/ALT 25 U/L (12-78); SODIUM 142 mmol/L (136-145); TOT PROT 7.8 g/dl (6.4-8.2)
[2017-10-29 17:09] LABS: ALK PHOS 75 U/L (45-117)
[2017-10-29 17:22] LABS: URINE APPEARANCE CLEAR; URINE BILIRUBIN NEGATIVE (<2.0 mg/dL); URINE COLOR LTYELLOW; URINE GLUCOSE (UA) NEGATIVE (NEGATIVE); URINE KETONE NEGATIVE (NEGATIVE); URINE LEUK ESTERASE NEGATIVE (NEGATIVE); URINE NITRITE NEGATIVE (NEGATIVE); URINE PROTEIN NEGATIVE (NEGATIVE); URINE UROBILINOGEN NEGATIVE mg/dL (0.2-1.0)
[2017-10-29 17:49] LABS: EPI CELLS RARE /HPF (FEW); URINE MUCUS RARE
[2017-10-29 18:04] VITALS: BP 139/96; PULSE 87; TEMP 97.9
--- NOTE | 2017-10-29 19:00 | PDOC ---
Attending Attestation - HPI HPI: 10/29/17 19:00 Ms. Vivian Vines is a 52 year old female with past medical history of Gastritis, HTN and hypercholesterolemia presents to the emergency department with lightheadedness and elevated BP. The patient presents s/p an episode of lightheadedness while walking down the hallway accompanied with weakness and nausea, denies LOC, vertigo, emesis or head injury. The patient states an increase in stress recently due to personal family issues. Denies chest pain or shortness of breath. Denies leg pain or swelling. Denies vomiting. Denies urinary/bowel changes. Allergies: NKDA Surgical history: Cholecystectomy Social history: Patient denies. PCP: Ceci Nuñez MD - Physicial Exam PE: 10/29/17 19:00 General: Well appearing, awake and alert, NAD. HEENT: NCAT, PERRL, EOMI, clear conjunctiva, anicteric, moist mucus membranes, clear oropharynx, no oral lesions.. Neck: neck supple, FROM, no JVD, LAD or masses Chest: no chest wall tenderness Lungs: CTAB, normal and even respirations, no respiratory distress Heart: RRR, no murmurs, 2+ peripheral pulses throughout, no peripheral edema Abdomen: soft, NTND, no peritoneal signs. Back: nontender, normal inspection and ROM MSK: no edema, LANDA x4, ROM intact. No clubbing or cyanosis. normal bulk and tone. Neuro: alert, oriented appropriately; no focal neurologic deficits. Gait stable. No ataxia. Skin: warm and well perfused, cap refill <2 sec, normal color - Medical Decision Making 10/29/17 19:00 Documentation prepared by Berkley Olmos, acting as medical billing service for Daria Duncan MD. <Berkley Olmos - Last Filed: 10/29/17 18:59> - Resident Resident Name: Juan C Khan - ED Attending Attestation I have performed the following: I have examined & evaluated the patient, The case was reviewed & discussed with the resident, I agree w/resident's findings & plan - Medical Decision Making 10/29/17 18:59 Mohinder 52F with HTN and HLD, ?thyroid issue, gastritis presenting with asymptomatic hypertension. Initially ? dizziness worse with walking and movement , no cp or sob, vertigo or neuro sx.. Also noted stressors and anxiety with family members. Symptoms since resolving. Vital signs reviewed, wnl. mild hypertension, but no end organ damage or suspicion for emergent pathology Plan: CBC, CMP, trop, EKG, TSH Prior notes reviewed, including admissions, discharges and consultations. laboratory results and imaging reviewed, basic labs and lytes and screening TSH wnl, notable for normal/neg trop. BP downtrending, no evidence of end organ damage. No neuro deficits, ambulatory w/o difficulty. Remains well appearing. EKG with isolated TWF in III, no ischemic changes, no ST segment elevations or depressions, normal intervals. Pt to be discharged in stable condition. Patient and family made aware of impression and plan, return precautions discussed (including but not limited to worsening pain or symptoms), fevers, or signs of infection, chest pain, respiratory distress, inability to tolerate oral intake, dehydration, syncope, or neurologic changes). Follow up with PMD and/or specialist as recommended, follow up information provided, take medications as instructed for duration of time. continue with supportive care, avoid triggers and precipitants and stressors. compliance with home medications encouraged. Information given in Danish. 10/29/17 19:14 <Daria Duncan - Last Filed: 10/29/17 19:16>
--- NOTE | 2017-10-30 13:29 | EKG ---
Test Reason : Blood Pressure : / mmHG Vent. Rate : 079 BPM Atrial Rate : 079 BPM P-R Int : 152 ms QRS Dur : 074 ms QT Int : 382 ms P-R-T Axes : 038 002 037 degrees QTc Int : 438 ms NORMAL SINUS RHYTHM NORMAL ECG WHEN COMPARED WITH ECG OF 14-NOV-2016 10:59, NO SIGNIFICANT CHANGE WAS FOUND Confirmed by BONNIE QUILES MD ([id number]) on 10/30/2017 1:29:05 PM Referred By: Confirmed By:BONNIE QUILES MD
== END 2017-10-29 18:07 | disposition home or self-care (01) ==
LOC: JER 15:01
PROC: 3E0337Z Introduction of Electrolytic and Water Balance Substance into Peripheral Vein, Percutaneous Approach (ICD-10-PCS; principal; 2017-10-29)
DX: I10 Essential (primary) hypertension (principal); R42 Dizziness and giddiness; E78.00 Pure hypercholesterolemia, unspecified; K29.70 Gastritis, unspecified, without bleeding; E07.9 Disorder of thyroid, unspecified
CPT/HCPCS: 36415; 80053; 81003; 81015; 82550; 83735; 84443; 84484; 85025; 93005; 93010; 96374; 99283-25

== ENCOUNTER 2017-12-09 02:52 | Emergency (ER) | payer OTHER ==
[2017-12-09 03:30] VITALS: BP 115/84; PULSE 83; TEMP 98.2; BMI 20.7
--- NOTE | 2017-12-09 03:45 | PDOC ---
Attending Attestation - Resident Resident Name: Sanjeev Rollins - ED Attending Attestation I have performed the following: I have examined & evaluated the patient, The case was reviewed & discussed with the resident, I agree w/resident's findings & plan - HPI HPI: 12/09/17 05:21 The patient is a 52 year old female, with a significant past medical history of asthma, who presents to the emergency department with, 6 hours of chest pain. As per patient, she has an associated cough over the past few days. She describes her chest pain as substernally and worsening upon inspiration. The patient recently came back from [place] 4 days ago. She is positive for sick contacts. She denies any recent calf swelling and tenderness. She denies recent fevers, chills, headache or dizziness. She denies recent nausea, vomit, diarrhea or constipation. She denies recent dysuria, frequency, urgency or hematuria. She denies recent shortness of breath. Allergies: NKA Social history: Nonsmoker. Denies EtOH use and recreational drug use. - Physicial Exam PE: 12/09/17 05:38 GENERAL: Awake, alert, and fully oriented, in no acute distress HEAD: No signs of trauma NECK: Normal ROM, supple, no lymphadenopathy, JVD, or masses LUNGS: Breath sounds equal, clear to auscultation bilaterally. No wheezes, and no crackles HEART: Regular rate and rhythm, normal S1 and S2, no murmurs, rubs or gallops ABDOMEN: Soft, nontender, normoactive bowel sounds. No guarding, no rebound. No masses BACK: No flank pain. EXTREMITIES: No calf tenderness or swelling. Normal range of motion, no edema. No clubbing or cyanosis. No cords, erythema, or tenderness NEUROLOGICAL: Cranial nerves II through XII grossly intact. Normal speech, normal gait SKIN: Warm, Dry, normal turgor, no rashes or lesions noted. <Jamia Lopez - Last Filed: 12/09/17 05:37> - Medical Decision Making 12/09/17 20:29 Pt comes with asthma exacerbation and atypical chest pains. States that she traveled to [place] on Monday and returned on Monday. Pt has no leg swelling, she has no EKG findings. Her D-dimer is within normal range given her age. She has no SOB after treatment in the ER; pt has normal pulsox. Pt has a normal CXR and normal labs. She is stable for discahrge home. <Haydee Washington - Last Filed: 12/09/17 20:33> Attestations - Attestations 12/09/17 05:21 Documentation prepared by Jamia Lopez, acting as biomedical photographer for Haydee Washington MD. <Jamia Lopez - Last Filed: 12/09/17 05:37>
--- NOTE | 2017-12-09 04:02 | PDOC ---
History of Present Illness - General Chief Complaint: Chest Pain Stated Complaint: HEART PAIN Time Seen by Provider: 12/09/17 03:16 History Source: Patient Exam Limitations: No Limitations - History of Present Illness Initial Comments: 12/09/17 03:58 Patient is a 52F with history of GERD here today complaining of chest pain for the past 6 hours. The patient reports having a mild cough over the past several days. Denies nausea, vomiting. Endorses recent plane travel from [place]. Chest pain is located substernally and worsens with inspiration. Denies leg swelling and prior blood clot. Denies CAD history. Endorses associated shortness of breath. Past History - Past Medical History Allergies/Adverse Reactions: Allergies Allergy/AdvReac Type Severity Reaction Status Date / Time No Known Allergies Allergy Verified 12/09/17 03:30 Home Medications: Ambulatory Orders NK [No Known Home Medication] 12/09/17 COPD: No GI Disorders: Yes (GASTRITIS) Hypercholesterolemia: Yes - Surgical History Cholecystectomy: Yes - Immunization History Immunization Up to Date: Yes - Suicide/Smoking/Psychosocial Hx Smoking History: Never smoked Have you smoked in the past 12 months: No Number of Cigarettes Smoked Daily: 2 Information on smoking cessation initiated: No Hx Alcohol Use: No Drug/Substance Use Hx: No Substance Use Type: None Review of Systems - Review of Systems Comments:: 12/09/17 04:00 GENERAL/CONSTITUTIONAL: +Fever +chills. No weakness. HEAD, EYES, EARS, NOSE AND THROAT: No change in vision. No sore throat. CARDIOVASCULAR: +chest pain +shortness of breath RESPIRATORY: +cough. No wheezing, or hemoptysis. GASTROINTESTINAL: No nausea, vomiting, diarrhea or constipation. GENITOURINARY: No dysuria, frequency, or change in urination. MUSCULOSKELETAL: No joint or muscle swelling or pain. No neck or back pain. SKIN: No rash NEUROLOGIC: No headache, vertigo, loss of consciousness, or change in strength/ sensation. ENDOCRINE: No increased thirst. No abnormal weight change HEMATOLOGIC/LYMPHATIC: No anemia, easy bleeding, or history of blood clots. ALLERGIC/IMMUNOLOGIC: No hives or skin allergy. *Physical Exam - Vital Signs Last Vital Signs Temp Pulse Resp BP Pulse Ox 98.2 F 83 18 115/84 96 12/09/17 03:00 12/09/17 03:00 12/09/17 03:00 12/09/17 03:00 12/09/17 03:00 - Physical Exam Comments: 12/09/17 04:01 GENERAL: Awake, alert, and fully oriented, in no acute distress HEAD: No signs of trauma, normocephalic, atraumatic EYES: PERRLA, EOMI, sclera anicteric, conjunctiva clear ENT: Auricles normal inspection, hearing grossly normal, nares patent, oropharynx clear without exudates. Moist mucosa NECK: Normal ROM, supple, no lymphadenopathy, JVD, or masses LUNGS: No distress, speaks full sentences, clear to auscultation bilaterally HEART: Regular rate and rhythm, normal S1 and S2, no murmurs, rubs or gallops, peripheral pulses normal and equal bilaterally. ABDOMEN: Soft, nontender, normoactive bowel sounds. No guarding, no rebound. No masses EXTREMITIES: Normal inspection, Normal range of motion, no edema. No clubbing or cyanosis. NEUROLOGICAL: Cranial nerves II through XII grossly intact. Normal speech, no focal sensorimotor deficits SKIN: Warm, Dry, normal turgor, no rashes or lesions noted. ED Treatment Course - LABORATORY CBC & Chemistry Diagram: 12/09/17 04:35 12/09/17 04:35 - RADIOLOGY Radiology Studies Ordered: Category Date Time Status CHEST PA & LAT [RAD] Stat Radiology 12/09/17 03:34 Ordered Medical Decision Making - Medical Decision Making 12/09/17 04:01 Patient is 52F with history of GERD here today with chest pain. Pain is atypical but age is over 50 and patient had recent air travel. Will evaluate with cardiac workup and d-dimer. Vital signs normal and stable. Low risk wells. 12/09/17 05:49 CXR clear. D-dimer negative. CBC, CMP unremarkable. Trop undetectable. Pending EKG. 12/09/17 05:54 EKG shows normal sinus rhythm with rate of 80. No st elevations/depressions. No significant t wave abnormalities. Normal axis. Normal intervals. 12/09/17 06:18 D/C home with return precautions. *DC/Admit/Observation/Transfer Diagnosis at time of Disposition: Chest pain - Discharge Dispostion Disposition: HOME Condition at time of disposition: Good Decision to Admit order: No - Referrals - Patient Instructions Printed Discharge Instructions: DI for Atypical Chest Pain Additional Instructions: Por favor, dominique un seguimiento con ortega mdico de atencin primaria la prxima semana. Regrese al departamento de emergencias si tiene sntomas nuevos, que empeoran o que le preocupan. Print Language: NIGERIEN - Post Discharge Activity
[2017-12-09] MEDS ORDERED: ALBUTEROL SO4 2.5/IPRATROPIUM 0.5 INH SOL 3 ML VIAL.NEB. NEB ONE ×2 (04:20→04:25)
[2017-12-09 04:42] LABS: BASO % 0.9 % (0-2.0); EOS % 4.1 % (0-4.5); HEMATOCRIT 42.9 % (32.4-45.2); HEMOGLOBIN 15.1 GM/dL (10.7-15.3); MCH 32.1 pg (25.7-33.7); MCHC 35.1 g/dl (32.0-36.0); MEAN CELL VOLUME 91.4 fl (80-96); MEAN PLT VOLUME 8.2 fl (7.5-11.1); MONO % 9.7 % (3.8-10.2); NEUT % 54.3 % (42.8-82.8); PLATELET COUNT 267 K/MM3 (134-434); RBC 4.69 M/mm3 (3.60-5.2); RDW 13.3 % (11.6-15.6)
[2017-12-09 04:57] LABS: INR 1.05 (0.83-1.09); PROTHROMBIN TIME (PATIENT) 11.9 SEC (9.7-13.0)
[2017-12-09 05:06] LABS: ANION GAP 8 MMOL/L (8-16); BILIRUBIN,TOTAL 0.6 mg/dL (0.2-1.0); BLOOD UREA NITROGEN 10 mg/dL (7-18); CALCIUM 8.6 mg/dL (8.5-10.1); CHLORIDE 106 mmol/L (98-107); CO2 28 mmol/L (21-32); CREATININE 0.8 mg/dL (0.55-1.02); GLUCOSE,RANDOM 127 mg/dL (74-106); MAGNESIUM 1.9 mg/dL (1.8-2.4); POTASSIUM 3.5 mmol/L (3.5-5.1); SGOT/AST 16 U/L (15-37); SGPT/ALT 22 U/L (12-78); SODIUM 142 mmol/L (136-145); TOT PROT 7.6 g/dl (6.4-8.2)
[2017-12-09 05:08] LABS: ALK PHOS 73 U/L (45-117)
--- NOTE | 2017-12-09 18:55 | EKG ---
Test Reason : Blood Pressure : / mmHG Vent. Rate : 080 BPM Atrial Rate : 080 BPM P-R Int : 156 ms QRS Dur : 080 ms QT Int : 402 ms P-R-T Axes : 042 -04 029 degrees QTc Int : 463 ms NORMAL SINUS RHYTHM LOW VOLTAGE QRS BORDERLINE ECG WHEN COMPARED WITH ECG OF 29-OCT-2017 16:54, NO SIGNIFICANT CHANGE WAS FOUND Confirmed by MARYANN METCALF MD ([id number]) on 12/09/2017 6:55:21 PM Referred By: Confirmed By:MARYANN METCALF MD
== END 2017-12-09 06:11 | disposition home or self-care (01) ==
LOC: JER 02:52
PROC: 3E0F7GC Introduction of Other Therapeutic Substance into Respiratory Tract, Via Natural or Artificial Opening (ICD-10-PCS; principal; 2017-12-09)
DX: R07.9 Chest pain, unspecified (principal); Z87.19 Personal history of other diseases of the digestive system
CPT/HCPCS: 36415; 71046-TC-FY; 80053; 82550; 83735; 84484; 85025; 85379; 85610; 93005; 93010; 94640; 99282-25; J7620